=== PATIENT | female | born 1980 | race Two or more races ===

== ENCOUNTER 2024-04-04 08:48 | Emergency (ER) | payer MEDICAID, SELFPAY ==
[2024-04-04 08:56] VITALS: BP 121/85; PULSE 89; RESP 19; TEMP 36.7; O2SAT 99; BMI 28.7
--- NOTE | 2024-04-04 09:02 | XR_ITS ---
Examination: CT brain head without contrast. 2-D sagittal coronal reconstructions Date and time of exam:April 04, 2024 0922 hrs. Indications: Patient fell 3 days ago with injury to the head followed by head pain blurred vision CTDI: vol (mGy):48.9 DLP: (mGycm):887 Technique: Multiple CT axial sections of the brain have been obtained, 5 mm slice thickness. Contrast has not been administered. 2-D sagittal, coronal reconstructions have been obtained Low dose protocols were performed. One or more of the following dose reduction techniques were used; automated exposure control, adjustment of the mA and/or KV according to patient size, use of iterative reconstruction technique. Findings: No significant ventricular enlargement. Intra-axial or extra-axial hemorrhage density is not seen. No mass effect or midline shift Basal cisterns are not remarkable. Fourth ventricle is midline. Cranial vault intact. Impression: Negative for acute hemorrhage, mass effect or midline shift If blurred vision persists,, consider brain MRI follow-up
--- NOTE | 2024-04-04 09:02 | XR_ITS ---
Examination: CT cervical spine without contrast 2-D sagittal reconstructions 2-D coronal reconstructions 3-D reconstructions. Exam date and time:March 08, 2024 0922 hrs. Indications: Syncopal episodes, patient fell 3 days ago with injury to the neck, neck pain CTDI:vol (mGy) 8.04 DLP: (mGycm) 161 Technique: Multiple 2 mm axial sections of the cervical spine have been obtained. The coronal and sagittal reconstructions have been obtained. 3-D reconstructions have been obtained. Low dose protocols were performed. One or more of the following dose reduction techniques were used; automated exposure control, adjustment of the mA and/or KV according to patient size, use of iterative reconstruction technique. Findings: Axial sections demonstrate intact base of the skull. C1 exhibit satisfactory relationship to the odontoid. No acute cervical vertebral body fracture seen. Alignment posterior spinous processes satisfactory. Impression: No acute cervical fracture.
--- NOTE | 2024-04-04 09:03 | PD.EDRME ---
Rapid Medical Screening Exam E Arrival date/time: 04/04/24 08:48 43-year-old female with past medical history of diabetes noncompliant presents emergency department complaining of headache with nausea and dizziness that started this past after ground-level fall. Chief Complaint: Head Injury Vital signs: Vital Signs Temperature 98.0 F 04/04/24 08:56 Pulse Rate 89 04/04/24 08:56 Respiratory Rate 19 04/04/24 08:56 Blood Pressure 121/85 H 04/04/24 08:56 Pulse Oximetry (%) 99 04/04/24 08:56 Oxygen Delivery Method Room Air 04/04/24 08:56 Vital signs reviewed by provider: Yes
[2024-04-04] MEDS: ONDANSETRON ODT 4 MG TABRAP PO (09:07)
[2024-04-04 09:53] LABS: Collection Type, Urine Clean Catch
[2024-04-04 10:08] LABS: HCG,Qualitative Serum Negative
[2024-04-04 10:09] LABS: Basophils % (Auto) 1 % (0-2.5); Eosinophils % (Auto) 1 % (0-10); Hematocrit 42.1 % (36.0-46.0); Hemoglobin 14.4 g/dL (12.0-16.0); Immature Granulocytes % (Auto) 0 % (0-0); Immature Granulocytes Auto 0.01 Thou/mm3 (0.00-0.00); Lymphocytes # (Auto) 1.8 Thou/mm3 (1.0-4.8); Lymphocytes % (Auto) 29 % (10-50); Mean Corpuscular HGB Conc 34.2 g/dl (31.0-37.0); Mean Corpuscular Hemoglobin 28.1 pg (25.0-35.0); Mean Corpuscular Volume 82 fL (80-100); Monocytes # (Auto) 0.4 Thou/mm3 (0.0-0.8); Monocytes % (Auto) 7 % (0-12); Neutrophils % (Auto) 63 % (37-80); Nucleated Red Blood Cell % 0 /100 WBC (0); Platelet Count 306 Thou/mm3 (140-440); RDW Standard Deviation 38.4 fL (36.4-46.3); Red Blood Count 5.12 Miln/mm3 (4.00-5.20); White Blood Count 6.3 Thou/mm3 (3.6-11.0)
[2024-04-04 10:17] LABS: Alanine Aminotransferase 43 U/L (10-49); Albumin, Serum 5.3 gm/dL (3.5-5.0); Albumin/Globulin Ratio 1.4 (1.2-2.2); Alcohol, Blood Medical < 3.0 mg/dL (0-10.0); Alkaline Phosphatase 98 U/L (46-116); Anion Gap 11 (7-16); Aspartate Amino Transferase 31 U/L (0-34); BUN/Creatinine Ratio 22 Ratio (12-20); Bilirubin,Total 1.4 mg/dL (0.3-1.2); Blood Urea Nitrogen 20 mg/dL (9-23); Calcium 10.1 mg/dL (8.3-10.6); Calcium (Corrected) 10.1 mg/dL (8.5-10.1); Carbon Dioxide 25.6 mMol/L (20.0-31.0); Chloride 98 mMol/L (98-107); Creatinine (Component) 0.9 mg/dL (0.6-1.3); Estimated Creatinine Clearance 65.8 mL/min (>60); Globulin 3.8 gm/dL (2.3-3.5); Glucose 334 mg/dL (74-106); Lipase 34 U/L (12-53); Osmolality,Calculated 285 (275-295); Potassium 3.8 mMol/L (3.4-5.1); Sodium 135 mMol/L (136-145); Total Protein 9.1 gm/dL (5.7-8.2); eGFR > 60 See Note
[2024-04-04 10:36] LABS: Bacteria,Urine Rare; Bilirubin,Urine Negative (Negative); Blood,Urine Negative (Negative); Budding Yeast,Urine Present; Clarity,Urine Clear (Clear/Hazy); Color,Urine Yellow (Lt Yel-Yel); Culture Indicated,Urine Not Indicated; Glucose, Urine 4+ (Negative); Ketones,Urine 4+ (Negative); Leukocyte Esterase,Urine Negative (Negative); Nitrite,Urine Negative (Negative); Protein,Urine 2+ (Neg - Trace); RBC,Urine 3 /hpf (0-3); Specific Gravity,Urine 1.049 (1.001-1.035); Squamous Epithelial Cell,Urine 8 /hpf (0-5); Urobilinogen,Urine Negative mg/dL (0.0-1.0); WBC,Urine 1 /hpf (0-5)
[2024-04-04 10:43] LABS: Amphetamine/Methamp Scrn,U Negative (Negative); Barbiturate Screen,Urine Negative (Negative); Benzodiazepines Screen,Urine Negative (Negative); Benzoylecgonine Screen, Ur Negative (Negative); Fentanyl Screen,Urine Negative (Negative); Opiate Screen,Urine Negative (Negative); THC Screen,Urine Positive (Negative)
--- NOTE | 2024-04-04 11:46 | EDNOTE_ITS ---
ED Head Injury RME/HPI General Chief complaint: Head Injury Stated complaint: HEAD INJURY/PAIN X SATURDAY; VOMITING Time Seen by Provider: 04/04/24 11:40 Arrival date/time: 04/04/24 08:48 RME / HPI RME / HPI Narrative: 43-year-old female with past medical history of diabetes noncompliant presents emergency department complaining of headache with nausea and dizziness that started this past after ground-level fall. Patient denies any neck pain denies any chest pain denies any other complaints patient is ambulatory. Related Data Home Medications ?Medication ?Instructions ?Recorded ?Confirmed vitamins-iron fumarate 27 1 tab PO QDAY 10/06/18 10/06/18 mg iron-folic acid 0.8 mg tablet ( Vitamin) Previous Rx's ?Medication ?Instructions ?Recorded ibuprofen 400 mg tablet 800 mg (2 x 400 mg) PO Q8HR PRN 10/08/18 Pain Scale 4-6 (Moderate #30 tabs metformin 500 mg tablet 500 mg PO BID #60 tabs 03/14/23 ibuprofen 800 mg tablet 800 mg PO TID PRN pain #30 tabs 04/04/24 ondansetron HCl 4 mg tablet 4 mg PO Q8H PRN nausea and 04/04/24 vomiting 5 days #20 tabs Allergies Allergy/AdvReac Type Severity Reaction Status Date / Time No Known Allergies Allergy Verified 04/04/24 08:49 Review of Systems Review of Systems Narrative Review of Systems: Review of system reviewed and within normal limits except mentioned in HPI ED Exam Narrative Physical exam: VITAL SIGNS: Reviewed. GENERAL APPEARANCE: Alert and interactive, follows commands, no acute distress, HEAD AND FACE: Non-traumatic. ENT: PERRL, pink conjunctivitis, eyelid no trauma, Mucous membrane moist. NECK: Supple, nontender, no nuchal rigidity. CHEST: No tenderness, no crepitus, no paradoxical movement, no retractions. LUNGS: Clear, well ventilated, symmetric, no rales, no wheezing, no ronchi, no stridor, good breath sounds bilaterally. HEART: Regular rate, regular rhythm, no murmur, no gallops. ABDOMEN: Soft, positive bowel sounds, nondistended, no guarding, nontender, no rebound, no masses, RECTAL: Deferred. GENITAL: Deferred. NEUROLOGICAL: Gross motor function intact sensory function intact, Appropriate for age. MUSCULOSKELETAL: low back nontender, full range of motion. EXTREMITIES: Nontender, full range of motion. SKIN: Color pink, dry, no rash, no lacerations, no abrasions, no contusions. LYMPHATICS: Deferred. Course Quality Measures none Orders Category Date Time Status CT cervical spine wo con Stat Exams 04/04/24 09:[address] head/brain wo con Stat Exams 04/04/24 09:02 Completed Alcohol, Blood Medical Stat Lab 04/04/24 09:33 Completed CBC Stat Lab 04/04/24 09:33 Completed CMP [Comprehensive Metabolic Panel] Stat Lab 04/04/24 09:33 Completed Drug Screen,Urine Stat Lab 04/04/24 09:40 Completed HCG,Qualitative Serum Stat Lab 04/04/24 09:33 Completed Lipase Stat Lab 04/04/24 09:33 Completed Urinalysis, C/S if Indicated Stat Lab 04/04/24 09:40 Completed Ondansetron Odt [Zofran Odt] Med 04/04/24 09:03 Discontinued 4 mg PO X1 ONE Vital Signs Vital signs: Vital Signs Temperature 98.0 F 04/04/24 08:56 Pulse Rate 89 04/04/24 08:56 Respiratory Rate 19 04/04/24 08:56 Blood Pressure 121/85 H 04/04/24 08:56 Pulse Oximetry (%) 99 04/04/24 08:56 Oxygen Delivery Method Room Air 04/04/24 08:56 Head Injury MDM Narrative MDM Narrative:: 43-year-old female with past medical history of diabetes noncompliant presents emergency department complaining of headache with nausea and dizziness that started this past after ground-level fall. Patient denies any neck pain denies any chest pain denies any other complaints patient is ambulatory. CT scan of the head came back unremarkable CT scan of the neck came back unremarkable laboratory workup also came back normal. Except for slight hyperglycemia we will 334 with no sign of DKA. Results discussed with the patient. Patient data External records reviewed:: None Clinical information provided by:: none Social determinants that could affect healthcare access:: none Patient has the following chronic illnesses:: Diabetes mellitus How is presenting disease/condition affected by chronic disease/condition?: exacerbated by Evaluation data The following diagnostics were reviewed and interpreted by me:: lab results and radiology exam(s) Lab and/or radiology exams considered but not ordered:: None Interpretation Summary: Laboratory workup is significant for hyperglycemia of 334 with no sign of DKA. The rest of the labs unremarkable. CT scan of the head came back unremarkable CT scan of the neck came back unremarkable. Medications / Prescriptions Medications or Prescriptions considered but not ordered:: None Medication administrations:: Medication Administration History Discontinued Medications Ondansetron HCl (Ondansetron Odt 4 Mg Tabrap) 4 mg PO X1 ONE; Protocol Stop: 04/04/24 09:04 Last Admin: 04/04/24 09:07 Dose: 4 mg Documented By: ANGE Heck Consultations Consultation(s) initiated? (list below): No Diagnosis Differential diagnosis head injury: closed head injury and subarachnoid hematoma Most likely diagnosis given after review of the tests above:: Status post fall, nausea and vomiting Admission Indicated Admission indicated?: not indicated Admission Request Was there a request for admission?: No Admission Attestation Admission request attestation: Stable Disposition Plan Disposition Plan: Discharge Discharge Attestation Discharge Attestation: The patient was given an opportunity to ask questions and understood the discharge instructions. Discharge instructions specifically effects, indications for sooner follow up or return to the emergency department, and the expected course of current diagnosis. Patient condition: Stable Discharge Plan Plan Patient Disposition: HOME (Self Care) Disposition Comment: STABLE Prescriptions/Referrals Prescriptions/Med Rec: New ondansetron HCl 4 mg tablet 4 mg PO Q8H PRN (Reason: nausea and vomiting) 5 Days Qty: 20 0RF ibuprofen 800 mg tablet 800 mg PO TID PRN (Reason: pain) Qty: 30 0RF No Action Vitamin 27 mg iron- 0.8 mg Tablet 1 tab PO QDAY ibuprofen 400 mg Tablet 800 mg PO Q8HR PRN (Reason: Pain Scale 4-6 (Moderate) Qty: 30 0RF metformin 500 mg tablet 500 mg PO BID Qty: 60 0RF Referrals: Richi Chu MD [Primary Care Provider] - In 1 week Problem List Clinical Impression: Fall, Nausea & vomiting Patient/Caregiver Discharge Instructions Discharge Activity: activity as tolerated Education Materials: Nausea Vomit Control Additional Instructions: Thank you for the opportunity for serving you today. You are stable for d ischarged . You are advised to: Follow-up with your PCP in 1 to 2 days Return to ED for worsening of symptoms Increase oral fluids Take medication as prescribed Print Language: Lebanese Stand Alone Forms: [facility] Award Info., Patient Portal Info Letter PA/DISTRIBUTION FIELD TECHNICIAN Supervising Physician PA/DISTRIBUTION FIELD TECHNICIAN Supervising Physician: MD [place]
== END 2024-04-04 12:00 | disposition home or self-care (01) ==
PROVIDERS: Emergency Provider Emergency Medicine; PCP Family Medicine
DX: S09.90XA Unspecified injury of head, initial encounter (principal); S19.9XXA Unspecified injury of neck, initial encounter; G44.309 Post-traumatic headache, unspecified, not intractable; R11.2 Nausea with vomiting, unspecified; W18.30XA Fall on same level, unspecified, initial encounter; E11.9 Type 2 diabetes mellitus without complications
CPT/HCPCS: 36415; 70450; 72125; 80053; 80307; 80320; 81001; 83690; 84703; 85025; 99284; Q0162; G0480